=== PATIENT | male | born 1995 | race African-American/Black ===

== ENCOUNTER 2020-01-15 16:19 | Emergency (ER) | payer SELFPAY ==
[~2020-01-15] VITALS: Ht 170.2 cm; Wt 99.8 kg
[2020-01-15 16:25] VITALS: BP 135/78
--- NOTE | 2020-01-15 16:25 | NUR ---
CAME IN FOR 5 CM LACERATION TO LLE S/P CUT WITH GLASS SHOWER DOOR, TO ER BED 13, HOOKED TO MONITOR, TECH AT BEDSIDE FOR CLEANING OF WOUND. AWAITING MD ALEMAN
--- NOTE | 2020-01-15 16:34 | NUR ---
DR SLADE AT BEDSIDE
--- NOTE | 2020-01-15 16:49 | NUR ---
PT DOES NOT WANT HIS WOUND TO BE CLEANED AND REFUSING CARE. PT ELOPED OUT OF ER. AWARE.
[2020-01-15] MEDS ORDERED: LIDOCAINE 1% INJ 50 ML MDV IJ ONE (17:00)
== END 2020-01-15 16:50 | disposition left against medical advice (07) ==
LOC: ER 16:19
DX: S81.812A Laceration without foreign body, left lower leg, initial encounter (principal); W25.XXXA Contact with sharp glass, initial encounter; Y93.89 Activity, other specified; Y92.89 Other specified places as the place of occurrence of the external cause; Y99.8 Other external cause status